=== PATIENT | male | born 1945 | race Caucasian/White ===

== ENCOUNTER 2017-04-23 05:53 | Day surgery (SDC) | payer MEDICARE ==
[2017-04-22 14:18] VITALS: BMI 41.5
[2017-04-23] MEDS ORDERED: Diprivan 20 ML ONE ×2 (07:27→07:35)
--- NOTE | 2017-04-23 08:19 | DIS ---
DATE OF PROCEDURE: 04/23/2017 He was seen in the outpatient setting to undergo a transesophageal echocardiogram to evaluate for lef t atrial appendage motion and also to rule out evidence of left atrial appendage thrombus and history of past atrial fibrillation which underwent ablation. His other diagnoses include coronary artery d isease, hypertension, hypercholesterolemia. He suffered a non-ST segment elevation myocardial infarc tion in the past. He has undergone angioplasty and stent placement in the past. He had had atrial f ibrillation and underwent atrial fibrillation ablation. He had been continued on anticoagulation and it was requested he come off of the medication. The ablation was in 07/2016. He was taken to the [facility] area where he underwent the procedure today. His discharge diagnoses are the same. He remains in sinus rhythm. There is no evidence of left atri al appendage thrombus. He has good flow into the left atrial appendage. DISCHARGE MEDICATIONS: Include his admission medications except we will stop the Eliquis and start h im on 81 mg of aspirin every day. His other medicines include glyburide 2.5 mg q.a.m., metformin 100 0 mg b.i.d., testosterone cypionate 200 mg per mL, he is injecting 0.25 mm every 4 weeks, nitroglyce rin p.r.n. as needed, fish oil, vitamin D3, active Q vitamins, Multaq 400 mg b.i.d., lisinopril 20 mg daily, CoQ10, Prostate PQ, Januvia 100 mg daily, Protonix 40 mg daily, metoprolol ER 50 mg daily, E liquis 5 mg b.i.d., hydrochlorothiazide 25 mg daily, hydrocodone/acetaminophen 5/325 2 tablets q.6h., amlodipine 5 mg daily, diltiazem ER 240 mg daily. I will see him back in the office in the next 2-4 weeks to determine whether or not he remains in sin us rhythm. If he has any problems in the interim, he will call me, but at this time I believe it is safe for this gentleman to stop his Eliquis and resume aspirin. There were no complications. If he remains stable, he will be discharged home in the next 1-2 hours.
--- NOTE | 2017-04-23 08:40 | ECHO ---
CARDIOLOGY PROCEDURE NOTE: Date: 04/23/17 PROCEDURE: Transesophageal echocardiogram. INDICATION FOR PROCEDURE: 71-year-old patient with a history of atrial fibrillation and underwent ablation. He has been on anti coagulation and was requesting if he could come off the anticoagulation. DESCRIPTION OF PROCEDURE: The patient was taken to the recovery area where he underwent short acting propofol. The transesophag eal probe was easily passed down the distal esophagus. IMPRESSION: 1. Normal left ventricular systolic function, ejection fraction 55-60%. 2. Mild to moderate mitral valve regurgitation. 3. Moderate tricuspid valve regurgitation. 4. No evidence of aortic valve disease, and no regurgitation or stenosis. 5. No evidence of left atrial or left atrial appendage thrombus. 6. Good flow into the left atrial appendage measured at 7 meters/second. There were no complications or difficulties encountered.
[2017-04-23] MEDS ORDERED: Propofol 200 MG/20 ML VIAL ONE (16:59)
== END 2017-04-23 08:34 | disposition home or self-care (01) ==
LOC: CCL 05:53
PROVIDERS: ATTEND Internal Medicine Cardiovascular Disease
DX: I48.0 Paroxysmal atrial fibrillation (principal); I25.10 Atherosclerotic heart disease of native coronary artery without angina pectoris; I10 Essential (primary) hypertension; E78.00 Pure hypercholesterolemia, unspecified; I25.2 Old myocardial infarction; I34.0 Nonrheumatic mitral (valve) insufficiency; I07.1 Rheumatic tricuspid insufficiency; E11.9 Type 2 diabetes mellitus without complications; E78.5 Hyperlipidemia, unspecified; G47.33 Obstructive sleep apnea (adult) (pediatric); Z87.891 Personal history of nicotine dependence; Z79.01 Long term (current) use of anticoagulants; Z98.890 Other specified postprocedural states; Z79.899 Other long term (current) drug therapy; Z88.0 Allergy status to penicillin; Z91.041 Radiographic dye allergy status; Z88.1 Allergy status to other antibiotic agents; Z88.8 Allergy status to other drugs, medicaments and biological substances; Z95.5 Presence of coronary angioplasty implant and graft; Z79.84 Long term (current) use of oral hypoglycemic drugs
CPT/HCPCS: 93312; J2704

== ENCOUNTER 2019-03-30 09:47 | Outpatient (CLI) | payer MEDICARE ==
--- NOTE | 2019-03-30 13:38 | MRI ---
MR the lumbar spine with and without contrast INDICATION: 73-year-old male with lumbar radicular pain COMPARISON: None. TECHNIQUE: Multiplanar multisequence MR images were obtained of lumbar spine with and without IV cont rast. Contrast: 20 cc of MultiHance. FINDINGS: Bone marrow: Small focal rest of fatty marrow versus hemangioma are seen within the L4, L3 and L2 sam tebral levels. There is postsurgical change of a laminectomy at L4. Distal spinal cord and conus: Normal. Conus is seen to terminate at the L1 level. Visualized retroperitoneum and paraspinal soft tissues: Normal. No lymphadenopathy demonstrated. Vertebral levels: L5-S1: There is a mild broad-based disc bulge with facet hypertrophy and loss of disc space height in ducing mild bilateral neural foraminal narrowing, left greater than right. L4-5: There is a broad-based disc bulge with a superimposed right paracentral, cephalad extending dis c extrusion. Constellation of findings induces mild central canal narrowing. The broad-based bulge with facet hypertrophy induce moderate to severe left and severe right neural foraminal narrowing. L3-4: There is a broad-based disc bulge with facet hypertrophy and ligament flavum hypertrophy induci ng moderate to severe central canal narrowing with moderate left and oowy-xk-ljuoywof right neural foraminal narrowing. L2-3: There is a broad-based bulge with facet hypertrophy inducing mild central canal narrowing and m ild bilateral neural foraminal narrowing. L1-L2: No appreciable central canal or neuroforaminal narrowing. T12-L1: No appreciable central canal or neuroforaminal narrowing. Postcontrast series: There is clumping with intermediate signal intensity soft tissue involving the n erve roots at the L3 vertebral level with very mild enhancement. Some of the perceived clumping could also be related to the moderate to severe narrowing at L3-4. IMPRESSION: 1. Moderate to severe central canal narrowing at L3-4 with moderate left and mild/moderate right neur al foraminal narrowing. 2. 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 3. Moderate to severe left and severe right neural foraminal narrowing at L4-5. There is a broad-base d disc bulge with a superimposed right paracentral, cephalad extending disc extrusion. This induces mild central canal narrowing. 4. Mild central canal narrowing with mild bilateral neural foraminal L2-3. 5. Mild bilateral neural foraminal narrowing at L5-S1, left greater than right.
[2019-03-30] MEDS ORDERED: Magnevist 469MG/ML 20 ML VIAL ONE (13:54)
== END 2019-03-30 09:48 | disposition home or self-care (01) ==
LOC: TBSIIMAG 09:47
PROVIDERS: ATTEND Neurological Surgery
DX: M51.16 Intervertebral disc disorders with radiculopathy, lumbar region (principal); M48.061 Spinal stenosis, lumbar region without neurogenic claudication; M48.07 Spinal stenosis, lumbosacral region; R93.7 Abnormal findings on diagnostic imaging of other parts of musculoskeletal system
CPT/HCPCS: 72158; 82565; A9579

== ENCOUNTER 2019-04-22 07:12 | Outpatient (CLI) | payer MEDICARE ==
[2019-04-22 10:22] LABS: Hemoglobin 15.4 g/dL (14.0-18.0); Mean Corpuscular HGB CONC 34.5 g/dL (32.0-36.0); Mean Corpuscular Hemoglobin 30.5 pg (27.0-31.0); Mean Corpuscular Volume 88.4 fL (78.0-98.0); Mean Platelet Volume 8.6 fL (7.4-10.4); Platelet Count 178 thou/uL (130-400); RBC Distribution Width 12.6 % (11.5-14.5); Red Blood Cell (RBC) Count 5.07 mill/uL (4.70-6.10); White Blood Cell (WBC) Count 6.2 thou/uL (4.8-10.8)
[2019-04-22 10:48] LABS: Anion Gap 11 mmol/L (10-20); BUN (Urea Nitrogen) 17 mg/dL (8.4-25.7); Calc. Creatinine Clearance 0 mL/min (70-130); Carbon Dioxide 26 mmol/L (23-31); Chloride 103 mmol/L (98-107); Estimated GFR-MDRD 83; Glucose 241 mg/dL (83-110); Potassium 4.4 mmol/L (3.5-5.1); Sodium 136 mmol/L (136-145)
== END 2019-04-22 07:13 | disposition home or self-care (01) ==
LOC: LABBT 07:12
PROVIDERS: ATTEND Neurological Surgery
DX: Z01.818 Encounter for other preprocedural examination (principal); M48.061 Spinal stenosis, lumbar region without neurogenic claudication
CPT/HCPCS: 80048; 85027; 93005; 93010

== ENCOUNTER 2019-04-27 06:09 | Day surgery (SDC) | payer MEDICARE ==
[2019-04-22 09:22] VITALS: BMI 38.3
--- NOTE | 2019-04-26 11:46 | HP ---
HISTORY OF PRESENT ILLNESS: Mr. Benitez is a patient known to us for previous lumbar decompression, who returns now with severe symptoms of back pain and neurogenic claudication with a new MRI that reveals adjacent segment stenosis at L3-L4 that is rather severe. He has treated this in the past with injections, acupuncture, physical therapy, and medications, but at this point, he hopes to move forward with surgical intervention. CURRENT MEDICATIONS: Include 1. Aspirin. 2. Plavix. 3. Glyburide. 4. Lisinopril. 5. Metformin. 6. Metoprolol. 7. Testosterone. 8. Nitrostat. 9. Eliquis. 10. Amlodipine. 11. Diltiazem. 12. Hydrochlorothiazide. 13. Januvia. 14. Lasix. 15. Protonix. PAST MEDICAL HISTORY: Coronary arterial disease, peripheral arterial disease, diabetes, neuropathy, hypertension, gastroesophageal reflux disease. PAST SURGICAL HISTORY: Cardiac stents, cardiac ablation, tonsillectomy, sinuplasty, and lumbar decompression. PHYSICAL EXAMINATION: The patient is alert and oriented. His gait is severely antalgic and slowed. Lower extremity motor exam is normal. ASSESSMENT: Lumbar spinal stenosis and neurogenic claudication. PLAN: Dr. Persaud met with the patient, reviewed imaging, and advocated for L3-L4 decompression. He explained to the patient the risks, benefits, and alternatives to the procedure. The patient expressed understanding and elected to move forward with surgery as discussed. I do believe the patient is mentally competent and capable of making medical decisions for himself. We will move forward with surgery as planned. Job ID: [id number]
[2019-04-27] MEDS ORDERED: EPINEPHrine 1 MG/ML AMP ONE (06:33)
[2019-04-27] MEDS ORDERED: Thrombin 5000 UNITS/5 ML VIAL ONE (06:33)
[2019-04-27] MEDS ORDERED: Bupivacaine PF 0.5% 30 ML VIAL ONE (06:33)
[2019-04-27] MEDS ORDERED: Fentanyl 100 MCG/2 ML VIAL ONE ×2 (06:47→07:39)
[2019-04-27] MEDS ORDERED: Levofloxacin 500 mg/D5W 100 ml Premix Bag ONE (07:42)
[2019-04-27] MEDS ORDERED: Clindamycin/D5W 900 mg/50 ml Premix Bag ONE (07:42)
[2019-04-27] MEDS ORDERED: Midazolam HCl 2 mg/2 ml Vial ONE (07:55)
[2019-04-27] MEDS ORDERED: PHENYLEPHRINE-NS 100 MCG/ML 10 ML SYRINGE ONE ×2 (08:54→09:45)
[2019-04-27] MEDS ORDERED: EPHEDRINE 25 MG/5 ML SYRINGE ONE ×2 (08:59→09:45)
[2019-04-27] MEDS ORDERED: SUGAMMADEX SODIUM 500 MG/5 ML VIAL ONE (09:11)
[2019-04-27] MEDS ORDERED: Ketorolac Tromethamine 30 MG/ML VIAL ONE (09:45)
[2019-04-27] MEDS ORDERED: PROPOFOL 200 MG/20 ML VIAL ONE (09:45)
[2019-04-27] MEDS ORDERED: Lidocaine 1% PF 5 ML VIAL ONE (09:45)
[2019-04-27] MEDS ORDERED: Rocuronium Bromide 10 MG/ML (10ML VIAL) ONE (09:45)
[2019-04-27] MEDS ORDERED: Ondansetron PF 4 MG/2 ML Vial ONE (09:45)
--- NOTE | 2019-04-27 09:46 | OP ---
DATE OF PROCEDURE: 04/27/2019 MELTER ASSISTANT: Angelito Owens PA-C INDICATION: Pain. DIAGNOSIS: Lumbar stenosis. PROCEDURES: L3-L4 lumbar decompression. ANESTHESIA: General. DESCRIPTION OF PROCEDURE: The patient was brought into the operating room and placed under general anesthesia. He was flipped from the supine to prone position on the operating room table. A linear incision was planned over the L3-L4 segment. After prepping and draping and after an appropriate preoperative pause, the incision was created. The soft tissues were swept away from midline. Self-retaining retractor was placed. The C-arm images were obtained to confirm the appropriate level. After confirming the L3-L4 level, an Adson rongeur as well as a high-speed cutting drill bit as well as 3 and 4 mm Kerrisons were used to perform a laminectomy, which encompassed an inferior aspect of L3 and the superior aspect of L4. The decompression was extended laterally to encompass the lateral recesses. After completing the decompression, the wound was irrigated. Hemostasis was maintained throughout. The wound was then closed in anatomic layers and a pressure dressing was applied. There were no known procedural complications. Job ID: [id number]
[2019-04-27] MEDS ORDERED: Tamsulosin HCl 0.4 MG CAP ONE (10:11)
== END 2019-04-27 12:35 | disposition home or self-care (01) ==
LOC: SDC 06:09
PROVIDERS: ATTEND Neurological Surgery
PROC: 01NB0ZZ Release Lumbar Nerve, Open Approach (ICD-10-PCS; principal; 2019-04-27)
DX: M48.062 Spinal stenosis, lumbar region with neurogenic claudication (principal); E11.40 Type 2 diabetes mellitus with diabetic neuropathy, unspecified; I10 Essential (primary) hypertension; I25.10 Atherosclerotic heart disease of native coronary artery without angina pectoris; K21.9 Gastro-esophageal reflux disease without esophagitis; I73.9 Peripheral vascular disease, unspecified; Z79.01 Long term (current) use of anticoagulants; Z79.82 Long term (current) use of aspirin; Z79.84 Long term (current) use of oral hypoglycemic drugs; Z79.899 Other long term (current) drug therapy; Z88.1 Allergy status to other antibiotic agents; Z91.041 Radiographic dye allergy status; Z95.5 Presence of coronary angioplasty implant and graft
CPT/HCPCS: 36416; 76000; J0171; J1885; J1956; J2001; J2250; J2405; J2704; J3010; J3490; S0020

== ENCOUNTER 2019-12-05 07:55 | Outpatient (CLI) | payer MEDICARE, OTHER ==
[2019-12-05 16:22] LABS: Hemoglobin 16.9 g/dL (14.0-18.0); Mean Corpuscular Hemoglobin 30.2 pg (27.0-31.0); Mean Corpuscular Volume 88.7 fL (78.0-98.0); Mean Platelet Volume 9.5 fL (7.4-10.4); Platelet Count 212 thou/uL (130-400); RBC Distribution Width 12.5 % (11.5-14.5); White Blood Cell (WBC) Count 7.5 thou/uL (4.8-10.8)
[2019-12-05 16:56] LABS: Anion Gap 15 mmol/L (10-20); BUN (Urea Nitrogen) 19 mg/dL (8.4-25.7); Calc. Creatinine Clearance 0 mL/min (70-130); Calcium 9.2 mg/dL (7.8-10.44); Carbon Dioxide 24 mmol/L (23-31); Chloride 100 mmol/L (98-107); Estimated GFR-MDRD 70; Glucose 213 mg/dL (83-110); Sodium 134 mmol/L (136-145)
[2019-12-06 16:20] LABS: SARS-CoV-2 MS2 Positive; SARS-CoV-2 N Gene Negative; SARS-CoV-2 S Gene Negative; SARS-CoV-2 by NAA Not Detected (NotDetected); SARS-CoV-2 orf1ab Negative
== END 2019-12-05 07:56 | disposition home or self-care (01) ==
LOC: LABBT 07:55
PROVIDERS: ATTEND Neurological Surgery
DX: Z01.812 Encounter for preprocedural laboratory examination (principal); M48.061 Spinal stenosis, lumbar region without neurogenic claudication; Z20.828 Contact with and (suspected) exposure to other viral communicable diseases
CPT/HCPCS: 80048; 85027; U0003; 87635

== ENCOUNTER 2019-12-09 06:13 | Day surgery (SDC) | payer MEDICARE ==
[2019-12-06 12:11] VITALS: BMI 37.3
--- NOTE | 2019-12-08 12:36 | HP ---
HISTORY OF PRESENT ILLNESS: Mr. Benitez is known to us for prior lumbar procedures who returns now with significant symptoms of what sounds to be neurogenic claudication. His new MRI from [facility] reveals L3-L5 stenosis of [id number]-pi-[id number] degree that appears to fit well with the symptoms that he is experiencing. He hopes to treat this surgically, if possible. PAST MEDICAL HISTORY: Significant for coronary artery disease, peripheral arterial disease, diabetes, neuropathy, hypertension, gastroesophageal reflux disease. CURRENT MEDICATIONS: 1. Aspirin. 2. Plavix. 3. Glyburide. 4. Lisinopril. 5. Metformin. 6. Metoprolol. 7. Testosterone. 8. Nitrostat. 9. Eliquis. 10. Amlodipine. 11. Diltiazem. 12. Hydrochlorothiazide. Januvia. 13. Lasix. 14. Protonix. PAST SURGICAL HISTORY: Cardiac stents, cardiac ablation, tonsillectomy, sinuplasty, lumbar decompression. ALLERGIES: NO KNOWN DRUG ALLERGIES. PHYSICAL EXAMINATION: Exam is deferred for COVID Telehealth Visit. ASSESSMENT: Lumbar spinal stenosis. PLAN: Dr. Persaud met with the patient, reviewed imaging, advocated for L3-L5 decompression. He explained to the patient the risks, benefits, and alternatives to the procedure. The patient expressed understanding and elected to move forward with surgery as discussed. I do believe the patient is competent and capable of making medical decisions for himself. We will move forward with surgery as planned. Job ID: [id number]
[2019-12-09] MEDS ORDERED: Clindamycin/D5W 900 mg/50 ml Premix Bag ONE ×2 (08:54→14:38)
[2019-12-09] MEDS ORDERED: Levofloxacin 500 mg/D5W 100 ml Premix Bag ONE (08:54)
[2019-12-09] MEDS ORDERED: Phenylephrine 10 MG/ML VIAL ONE (09:10)
[2019-12-09] MEDS ORDERED: Famotidine/PF 20 mg/2ml Vial ONE (09:10)
[2019-12-09] MEDS ORDERED: Fentanyl 100 MCG/2 ML VIAL ONE (09:10)
[2019-12-09] MEDS ORDERED: Rocuronium Bromide 10 MG/ML (10ML VIAL) ONE (10:33)
[2019-12-09] MEDS ORDERED: EPHEDRINE 25 MG/5 ML SYRINGE ONE (10:33)
[2019-12-09] MEDS ORDERED: PROPOFOL 200 MG/20 ML VIAL ONE (10:33)
[2019-12-09] MEDS ORDERED: Ondansetron PF 4 MG/2 ML Vial ONE (10:33)
[2019-12-09] MEDS ORDERED: Lidocaine 1% PF 5 ML VIAL ONE (10:33)
[2019-12-09] MEDS ORDERED: Glycopyrrolate 0.2 MG/ML 5 ML SYRINGE ONE (10:33)
[2019-12-09] MEDS ORDERED: PHENYLEPHRINE-NS 100 MCG/ML 10 ML SYRINGE ONE (10:33)
[2019-12-09] MEDS ORDERED: tiZANidine HCl 4 MG TAB ONE (11:13)
[2019-12-09] MEDS ORDERED: HYDROcodone/Acetaminophen 5/325 mg Tablet ONE (15:47)
--- NOTE | 2019-12-11 08:54 | EKG ---
Test Reason : PREOP Blood Pressure : / mmHG Vent. Rate : 074 BPM Atrial Rate : 074 BPM P-R Int : 160 ms QRS Dur : 152 ms QT Int : 410 ms P-R-T Axes : 044 -71 011 degrees QTc Int : 455 ms Normal sinus rhythm Right bundle branch block Left anterior fascicular block Bifascicular block Abnormal ECG No previous ECGs available Confirmed by DR. Ekaterina VALERA ([id number]) on 12/11/2019 8:54:27 AM Referred By: KATHERINE Confirmed By:DR. Ekaterina VALERA
--- NOTE | 2019-12-12 13:30 | OP ---
DATE OF PROCEDURE: 12/09/2019 SYSTEMS LIBRARIAN: Angelito Owens PA-C. INDICATION: Pain. DIAGNOSIS: Lumbar stenosis with neurogenic claudication. PROCEDURE PERFORMED: L3 through L5 lumbar decompression. ANESTHESIA: General. DESCRIPTION OF PROCEDURE: The patient was brought into the operating room and placed under general anesthesia. He was flipped from the supine to prone position on the operating room table. A linear incision was planned spanning L3 through L5. After prepping and draping and after an appropriate preoperative pause, the incision was created. The soft tissues were swept away from midline. Self-retaining retractors were placed in the wound for optimal exposure. After confirming the appropriate level of C-arm fluoroscopy, an Adson rongeur was used to remove the spinous process of L4, most of L3 and superior aspect of L5. High-speed cutting drill bit as well as 2, 3 and 4 mm Kerrisons were then used to complete the laminectomy until the lateral recesses and central canal were well decompressed. After completing the decompression, the wound was irrigated. Hemostasis was maintained throughout. The wound was then closed in anatomic layers, and a pressure dressing was applied. There were no known procedural complications. Job ID: [id number]
== END 2019-12-09 16:25 | disposition home or self-care (01) ==
LOC: SDC 06:13
PROVIDERS: ATTEND Neurological Surgery
PROC: 01NB0ZZ Release Lumbar Nerve, Open Approach (ICD-10-PCS; principal; 2019-12-09)
DX: M48.062 Spinal stenosis, lumbar region with neurogenic claudication (principal); I25.10 Atherosclerotic heart disease of native coronary artery without angina pectoris; E11.51 Type 2 diabetes mellitus with diabetic peripheral angiopathy without gangrene; E11.40 Type 2 diabetes mellitus with diabetic neuropathy, unspecified; I10 Essential (primary) hypertension; K21.9 Gastro-esophageal reflux disease without esophagitis; Z79.01 Long term (current) use of anticoagulants; Z79.02 Long term (current) use of antithrombotics/antiplatelets; Z79.82 Long term (current) use of aspirin; Z79.84 Long term (current) use of oral hypoglycemic drugs; Z79.899 Other long term (current) drug therapy; Z88.1 Allergy status to other antibiotic agents; Z91.041 Radiographic dye allergy status; Z95.5 Presence of coronary angioplasty implant and graft
CPT/HCPCS: 76000; 93005; 93010; J1956; J2370; J2405; J2704; J3010; J3490; S0028

== ENCOUNTER 2020-08-17 21:28 | Emergency (ER) | payer MEDICARE ==
[2020-08-17] MEDS ORDERED: Erythromycin Base 0.5% Oint 1 GM TUBE EA EYE SCH (23:00)
== END 2020-08-17 23:10 | disposition home or self-care (01) ==
LOC: ERS 21:28
DX: H11.442 Conjunctival cysts, left eye (principal); H11.32 Conjunctival hemorrhage, left eye; G47.30 Sleep apnea, unspecified; E11.9 Type 2 diabetes mellitus without complications; I10 Essential (primary) hypertension; Z86.73 Personal history of transient ischemic attack (TIA), and cerebral infarction without residual deficits
CPT/HCPCS: 99282

== ENCOUNTER 2020-08-24 09:56 | Outpatient (CLI) | payer MEDICARE ==
[2020-08-24 11:18] LABS: Anion Gap 14 mmol/L (10-20); BUN (Urea Nitrogen) 23 mg/dL (8.4-25.7); Calc. Creatinine Clearance 0 mL/min (70-130); Calcium 9.7 mg/dL (7.8-10.44); Carbon Dioxide 27 mmol/L (23-31); Chloride 96 mmol/L (98-107); Glucose 338 mg/dL (83-110); Sodium 132 mmol/L (136-145)
[2020-08-24 11:20] LABS: Hemoglobin 16.2 g/dL (13.5-17.5); Mean Corpuscular HGB CONC 34.5 g/dL (32.0-36.0); Mean Corpuscular Hemoglobin 29.3 pg (27.0-33.0); Mean Platelet Volume 11.4 fl (7.4-10.4); Platelet Count 180 10x3/uL (150-450); RBC Distribution Width 13.2 % (11.5-14.5); Red Blood Cell (RBC) Count 5.52 10x6/uL (4.32-5.72); White Blood Cell (WBC) Count 7.3 10x3/uL (3.5-10.5)
== END 2020-08-24 09:57 | disposition home or self-care (01) ==
LOC: LABBT 09:56
PROVIDERS: ATTEND Neurological Surgery
DX: Z01.818 Encounter for other preprocedural examination (principal); M71.38 Other bursal cyst, other site
CPT/HCPCS: 80048; 85027; 93005; 93010

== ENCOUNTER 2020-08-29 06:21 | Day surgery (SDC) | payer MEDICARE ==
[2020-08-28 10:30] VITALS: BMI 38.3
[2020-08-29] MEDS ORDERED: EPINEPHrine 1 MG/ML AMP ONE (06:58)
[2020-08-29] MEDS ORDERED: Thrombin 5000 UNITS/5 ML VIAL ONE (06:58)
[2020-08-29] MEDS ORDERED: Bupivacaine PF 0.5% 30 ML VIAL ONE (06:58)
[2020-08-29] MEDS ORDERED: Fentanyl 100 MCG/2 ML VIAL ONE ×2 (07:07→10:10)
[2020-08-29] MEDS ORDERED: Phenylephrine 10 MG/ML VIAL ONE (07:08)
[2020-08-29] MEDS ORDERED: SUGAMMADEX SODIUM 500 MG/5 ML VIAL ONE (07:08)
[2020-08-29] MEDS ORDERED: Clindamycin/D5W 900 mg/50 ml Premix Bag ONE (07:17)
[2020-08-29] MEDS ORDERED: Levofloxacin 500 mg/D5W 100 ml Premix Bag ONE (07:17)
[2020-08-29] MEDS ORDERED: PHENYLEPHRINE-NS 100 MCG/ML 10 ML SYRINGE ONE (08:15)
[2020-08-29] MEDS ORDERED: Rocuronium Bromide 10 MG/ML (10ML VIAL) ONE (08:15)
[2020-08-29] MEDS ORDERED: ePHEDrine Sulfate 50 MG/10 ML VIAL ONE (08:15)
[2020-08-29] MEDS ORDERED: Glycopyrrolate 0.2 MG/ML 5 ML SYRINGE ONE (08:15)
[2020-08-29] MEDS ORDERED: Ondansetron PF 4 MG/2 ML Vial ONE (08:15)
[2020-08-29] MEDS ORDERED: Ketorolac Tromethamine 30 MG/ML VIAL ONE (08:15)
[2020-08-29] MEDS ORDERED: Lidocaine 1% PF 5 ML VIAL ONE (08:15)
[2020-08-29] MEDS ORDERED: PROPOFOL 200 MG/20 ML VIAL ONE (08:15)
[2020-08-29] MEDS ORDERED: Calcium Chloride 1 GM/10 ML Abboject SYRINGE ONE (08:15)
== END 2020-08-29 14:10 | disposition home or self-care (01) ==
LOC: SDC 06:21
PROVIDERS: ATTEND Neurological Surgery
PROC: 0QB00ZZ Excision of Lumbar Vertebra, Open Approach (ICD-10-PCS; principal; 2020-08-29)
PROC: 01NB0ZZ Release Lumbar Nerve, Open Approach (ICD-10-PCS; 2020-08-29)
DX: M71.38 Other bursal cyst, other site (principal); M48.061 Spinal stenosis, lumbar region without neurogenic claudication; M54.16 Radiculopathy, lumbar region; I25.10 Atherosclerotic heart disease of native coronary artery without angina pectoris; E11.51 Type 2 diabetes mellitus with diabetic peripheral angiopathy without gangrene; E11.40 Type 2 diabetes mellitus with diabetic neuropathy, unspecified; I10 Essential (primary) hypertension; K21.9 Gastro-esophageal reflux disease without esophagitis; Z79.01 Long term (current) use of anticoagulants; Z79.02 Long term (current) use of antithrombotics/antiplatelets; Z79.82 Long term (current) use of aspirin; Z79.84 Long term (current) use of oral hypoglycemic drugs; Z79.899 Other long term (current) drug therapy; Z88.1 Allergy status to other antibiotic agents; Z91.041 Radiographic dye allergy status; Z95.5 Presence of coronary angioplasty implant and graft
CPT/HCPCS: 76000; J0171; J1885; J1956; J2370; J2405; J2704; J3010; J3490; S0020

== ENCOUNTER 2020-12-30 11:16 | Emergency (ER) | payer OTHER, MEDICARE ==
[2020-12-30] MEDS ORDERED: Morphine 10 MG/ML VIAL ONE (12:04)
== END 2020-12-30 13:05 | disposition home or self-care (01) ==
LOC: ERS 11:16
DX: M25.551 Pain in right hip (principal); M25.561 Pain in right knee; M54.50 Low back pain, unspecified; G47.30 Sleep apnea, unspecified; E11.9 Type 2 diabetes mellitus without complications; I10 Essential (primary) hypertension; Z86.73 Personal history of transient ischemic attack (TIA), and cerebral infarction without residual deficits; Z87.442 Personal history of urinary calculi; Z79.899 Other long term (current) drug therapy; Z79.84 Long term (current) use of oral hypoglycemic drugs; W01.0XXA Fall on same level from slipping, tripping and stumbling without subsequent striking against object, initial encounter
CPT/HCPCS: 72100; 96372; J2270

== ENCOUNTER 2021-02-25 17:20 | Outpatient (CLI) | payer MEDICARE ==
[2021-02-25 18:56] LABS: Hemoglobin 15.1 g/dL (13.5-17.5); Mean Corpuscular HGB CONC 34.6 g/dL (32.0-36.0); Mean Corpuscular Hemoglobin 30.3 pg (27.0-33.0); Mean Corpuscular Volume 87.6 fl (81.2-95.1); Mean Platelet Volume 11.8 fl (7.4-10.4); Platelet Count 227 10x3/uL (150-450); RBC Distribution Width 13.2 % (11.5-14.5); Red Blood Cell (RBC) Count 4.98 10x6/uL (4.32-5.72); White Blood Cell (WBC) Count 7.9 10x3/uL (3.5-10.5)
[2021-02-25 19:22] LABS: Anion Gap 16 mmol/L (10-20); BUN (Urea Nitrogen) 21 mg/dL (8.4-25.7); Calc. Creatinine Clearance 0 mL/min (70-130); Calcium 9.3 mg/dL (7.8-10.44); Carbon Dioxide 24 mmol/L (23-31); Chloride 99 mmol/L (98-107); Glucose 376 mg/dL (83-110); Potassium 4.5 mmol/L (3.5-5.1); Sodium 134 mmol/L (136-145)
[2021-02-26 19:45] LABS: SARS-CoV-2 PCR by NAA Not Detected (NotDetected)
== END 2021-02-25 17:21 | disposition home or self-care (01) ==
LOC: LABBT 17:20
PROVIDERS: ATTEND Neurological Surgery
DX: Z01.812 Encounter for preprocedural laboratory examination (principal); Z20.822 Contact with and (suspected) exposure to COVID-19
CPT/HCPCS: 80048; 85027; U0003; U0005

== ENCOUNTER 2021-02-27 06:13 | Day surgery (SDC) | payer MEDICARE ==
[2021-02-20 14:25] VITALS: BMI 38.3
[2021-02-27] MEDS ORDERED: Clindamycin/D5W 900 mg/50 ml Premix Bag ONE (07:02)
[2021-02-27] MEDS ORDERED: Levofloxacin 500 mg/D5W 100 ml Premix Bag ONE (07:02)
[2021-02-27] MEDS ORDERED: EPINEPHrine 1 MG/ML AMP ONE (08:33)
[2021-02-27] MEDS ORDERED: Bupivacaine PF 0.5% 30 ML VIAL ONE (08:33)
[2021-02-27] MEDS ORDERED: ePHEDrine 50 MG/ML VIAL ONE (09:46)
[2021-02-27] MEDS ORDERED: Rocuronium Bromide 10 MG/ML (10ML VIAL) ONE (09:46)
[2021-02-27] MEDS ORDERED: PROPOFOL 200 MG/20 ML VIAL ONE (09:46)
[2021-02-27] MEDS ORDERED: Phenylephrine 10 MG/ML VIAL ONE (09:46)
[2021-02-27] MEDS ORDERED: Ondansetron PF 4 MG/2 ML Vial ONE (09:46)
[2021-02-27] MEDS ORDERED: Calcium Chloride 1 GM/10 ML Abboject SYRINGE ONE (09:46)
[2021-02-27] MEDS ORDERED: Dexamethasone 20 MG/5 ML VIAL ONE (09:46)
[2021-02-27] MEDS ORDERED: Lidocaine 1% PF 5 ML VIAL ONE (09:46)
[2021-02-27] MEDS ORDERED: Fentanyl 100 MCG/2 ML VIAL ONE ×2 (09:48→11:40)
[2021-02-27] MEDS ORDERED: SUGAMMADEX SODIUM 200 MG/2 ML VIAL ONE (10:52)
[2021-02-27] MEDS ORDERED: Tamsulosin HCl 0.4 MG CAP ONE (11:35)
[2021-02-27] MEDS ORDERED: HYDROcodone/Acetaminophen 5/325 mg Tablet ONE (13:30)
== END 2021-02-27 14:30 | disposition home or self-care (01) ==
LOC: SDC 06:13
PROVIDERS: ATTEND Neurological Surgery
PROC: 0SB20ZZ Excision of Lumbar Vertebral Disc, Open Approach (ICD-10-PCS; principal; 2021-02-27)
DX: M51.16 Intervertebral disc disorders with radiculopathy, lumbar region (principal); I25.10 Atherosclerotic heart disease of native coronary artery without angina pectoris; E11.51 Type 2 diabetes mellitus with diabetic peripheral angiopathy without gangrene; E11.40 Type 2 diabetes mellitus with diabetic neuropathy, unspecified; I10 Essential (primary) hypertension; K21.9 Gastro-esophageal reflux disease without esophagitis; Z79.01 Long term (current) use of anticoagulants; Z79.02 Long term (current) use of antithrombotics/antiplatelets; Z79.82 Long term (current) use of aspirin; Z79.84 Long term (current) use of oral hypoglycemic drugs; Z79.899 Other long term (current) drug therapy; Z88.1 Allergy status to other antibiotic agents; Z91.041 Radiographic dye allergy status; Z95.5 Presence of coronary angioplasty implant and graft
CPT/HCPCS: 36416; 76000; J0171; J1100; J1956; J2370; J2405; J2704; J3010; J3490; S0020

== ENCOUNTER 2021-08-20 14:32 | Observation (INO) | payer MEDICARE ==
[2021-08-20] MEDS ORDERED: Aspirin Chewable 81 MG TAB ONE (15:10)
[2021-08-20] MEDS ORDERED: Nitroglycerin 0.4 MG TAB 1 EACH ONE (15:10)
[2021-08-20 15:12] LABS: #Eosinphils 0.2 thou/uL (0.0-0.7); #Lymphocytes 1.8 thou/uL (1.20-3.40); #Monocytes 0.7 thou/uL (0.11-0.59); #Neutrophils 5.1 thou/uL (1.40-6.50); %Basophils 0.4 % (0.0-1.0); %Eosinophils 2.3 % (0.0-10.0); %Lymphocytes 22.8 % (21.0-51.0); %Monocytes 9.3 % (0.0-10.0); %Neutrophils 65.3 % (42.0-75.0); Hemoglobin 16.7 g/dL (14.0-18.0); Mean Corpuscular HGB CONC 33.5 g/dL (32.0-36.0); Mean Corpuscular Hemoglobin 30.4 pg (27.0-31.0); Mean Corpuscular Volume 90.6 fL (78.0-98.0); Mean Platelet Volume 8.6 fL (7.4-10.4); Platelet Count 175 thou/uL (130-400); RBC Distribution Width 13.1 % (11.5-14.5); White Blood Cell (WBC) Count 7.8 thou/uL (4.8-10.8)
[2021-08-20 16:13] LABS: ALT (SGPT) 22 U/L (8-55); AST (SGOT) 13 U/L (5-34); Albumin 4.2 g/dL (3.4-4.8); Alkaline Phosphatase 64 U/L (40-110); Anion Gap 17 mmol/L (10-20); BUN (Urea Nitrogen) 18 mg/dL (8.4-25.7); Bilirubin, Total 0.6 mg/dL (0.2-1.2); Calc. Creatinine Clearance 0 mL/min (70-130); Calcium 9.6 mg/dL (7.8-10.44); Carbon Dioxide 25 mmol/L (23-31); Chloride 95 mmol/L (98-107); Globulin 2.1 g/dL (2.4-3.5); Glucose 351 mg/dL (83-110); Lipase 40 U/L (8-78); Potassium 4.7 mmol/L (3.5-5.1); Protein, Total 6.3 g/dL (5.8-8.1); Sodium 132 mmol/L (136-145)
[2021-08-20 18:21] VITALS: BMI 37.2
[2021-08-20 18:25] LABS: Troponin I Less than 0.010 ng/mL (< 0.028)
[2021-08-20] MEDS ORDERED: Acetaminophen 325 MG TAB PO PRN (21:34)
[2021-08-20] MEDS ORDERED: Dextrose 50% Abboject 50 ML SYRINGE SLOW IVP PRN (21:34)
[2021-08-20] MEDS ORDERED: Dextrose 5% in Water 1,000 ML IV PRN (21:34)
[2021-08-20] MEDS ORDERED: HumaLOG 300 UNITS/3 ML VIAL SC PRN ×2 (21:34)
[2021-08-20] MEDS ORDERED: Ondansetron PF 4 MG/2 ML Vial IVP PRN (21:34)
[2021-08-20] MEDS ORDERED: POT CHLORIDE PO PRN (21:39)
[2021-08-20] MEDS ORDERED: CAL PHOS PO PRN (21:39)
[2021-08-20] MEDS ORDERED: MAG PO PRN (21:39)
[2021-08-20] MEDS ORDERED: Furosemide 40 MG TAB PO SCH (21:45)
[2021-08-20] MEDS ORDERED: Nitroglycerin 2% Ointment 1 INCH/1 GM Packet TOP SCH (22:00)
[2021-08-20] MEDS ORDERED: hydrALAZINE 20 MG/ML VIAL SLOW IVP PRN (22:03)
[2021-08-20 22:56] LABS: Troponin I Less than 0.010 ng/mL (< 0.028)
[2021-08-21 05:11] LABS: #Basophils 0.1 thou/uL (0.0-0.2); #Eosinphils 0.3 thou/uL (0.0-0.7); #Lymphocytes 2.4 thou/uL (1.20-3.40); #Monocytes 0.7 thou/uL (0.11-0.59); #Neutrophils 3.2 thou/uL (1.40-6.50); %Eosinophils 4.4 % (0.0-10.0); %Monocytes 10.6 % (0.0-10.0); Hemoglobin 15.8 g/dL (14.0-18.0); Mean Corpuscular HGB CONC 34.8 g/dL (32.0-36.0); Mean Corpuscular Hemoglobin 31.3 pg (27.0-31.0); Mean Corpuscular Volume 89.8 fL (78.0-98.0); Platelet Count 160 thou/uL (130-400); RBC Distribution Width 12.9 % (11.5-14.5); Red Blood Cell (RBC) Count 5.05 mill/uL (4.70-6.10); White Blood Cell (WBC) Count 6.8 thou/uL (4.8-10.8)
[2021-08-21 05:43] LABS: ALT (SGPT) 20 U/L (8-55); AST (SGOT) 13 U/L (5-34); Albumin 3.8 g/dL (3.4-4.8); Alkaline Phosphatase 68 U/L (40-110); Anion Gap 15 mmol/L (10-20); BUN (Urea Nitrogen) 18 mg/dL (8.4-25.7); Bilirubin, Total 0.7 mg/dL (0.2-1.2); Calc. Creatinine Clearance 121 mL/min (70-130); Calcium 9.2 mg/dL (7.8-10.44); Carbon Dioxide 23 mmol/L (23-31); Chloride 102 mmol/L (98-107); Globulin 2.2 g/dL (2.4-3.5); Glucose 256 mg/dL (83-110); Sodium 136 mmol/L (136-145)
[2021-08-21] MEDS ORDERED: metFORMIN 500 MG TAB PO SCH (08:00)
[2021-08-21] MEDS ORDERED: Spironolactone 25 MG TAB PO SCH (08:00)
[2021-08-21] MEDS ORDERED: BETA PO SCH (09:00)
[2021-08-21] MEDS ORDERED: Fish Oil 1,000 MG CAP PO SCH (09:00)
[2021-08-21] MEDS ORDERED: Aspirin Chewable 81 MG TAB PO SCH (09:00)
[2021-08-21] MEDS ORDERED: Clopidogrel Bisulfate 75 MG TAB PO SCH (09:00)
[2021-08-21] MEDS ORDERED: VIT E PO SCH (09:00)
[2021-08-21] MEDS ORDERED: Hydrochlorothiazide 25 MG TAB PO SCH (09:00)
[2021-08-21] MEDS ORDERED: SAW PO SCH (09:00)
[2021-08-21] MEDS ORDERED: Tamsulosin HCl 0.4 MG CAP PO SCH (09:00)
[2021-08-21] MEDS ORDERED: glyBURIDE 5 MG TAB PO SCH (09:00)
[2021-08-21] MEDS ORDERED: Cholecalciferol 1,000 UNITS (25 MCG) TAB PO SCH (09:00)
[2021-08-21] MEDS ORDERED: PYG PO SCH (09:00)
[2021-08-21] MEDS ORDERED: SOD SEL PO SCH (09:00)
[2021-08-21] MEDS ORDERED: Lisinopril 20 MG TAB PO SCH (09:00)
[2021-08-21] MEDS ORDERED: Amlodipine 5 MG TAB PO SCH ×2 (09:00)
[2021-08-21] MEDS ORDERED: LYC PO SCH (09:00)
[2021-08-21] MEDS ORDERED: Enoxaparin Sodium 40 MG/0.4 ML SYRINGE SC SCH (09:00)
[2021-08-21 11:52] VITALS: BP 126/74; TEMP 97.8
[2021-08-21] MEDS ORDERED: ALPRAZolam 1 MG TAB PO SCH (21:00)
[2021-08-27] MEDS ORDERED: TESTOSTERONE CYPIONATE 100 MG/ML IM SCH (09:00)
== END 2021-08-21 13:57 | disposition home or self-care (01) ==
LOC: ERS 14:32 → 2SW 16:43
PROVIDERS: ADMIT Internal Medicine; ATTEND Internal Medicine
DX: R07.89 Other chest pain (principal); I10 Essential (primary) hypertension; E11.65 Type 2 diabetes mellitus with hyperglycemia; I25.10 Atherosclerotic heart disease of native coronary artery without angina pectoris; G47.33 Obstructive sleep apnea (adult) (pediatric); I25.2 Old myocardial infarction; N52.9 Male erectile dysfunction, unspecified; G89.29 Other chronic pain; M54.50 Low back pain, unspecified; E78.5 Hyperlipidemia, unspecified; E78.00 Pure hypercholesterolemia, unspecified; I45.10 Unspecified right bundle-branch block; E66.01 Morbid (severe) obesity due to excess calories; Z68.37 Body mass index [BMI] 37.0-37.9, adult; Z79.84 Long term (current) use of oral hypoglycemic drugs; Z79.899 Other long term (current) drug therapy; Z88.1 Allergy status to other antibiotic agents; Z91.041 Radiographic dye allergy status; Z95.5 Presence of coronary angioplasty implant and graft; Z20.822 Contact with and (suspected) exposure to COVID-19
CPT/HCPCS: 71045; 80053 ×2; 82962 ×2; 83690; 83880; 84484 ×2; 85025 ×2; 93005; 96372; 97139 ×4; 99285; G0378 ×3; U0003; U0005; 36415; 36416; J1650; J1815